=== PATIENT | male | born 1965 | race Two or more races ===

== ENCOUNTER → 2024-03-16 | Outpatient (CLI) | payer MEDICARE, SELFPAY ==
[2024-03-16 09:17] LABS: Anion Gap 4 (7-16); BUN/Creatinine Ratio 22 Ratio (12-20); Blood Urea Nitrogen 29 mg/dL (9-23); Calcium 10.4 mg/dL (8.3-10.6); Carbon Dioxide 30.7 mMol/L (20.0-31.0); Chloride 101 mMol/L (98-107); Creatinine (Component) 1.3 mg/dL (0.6-1.3); Glucose 168 mg/dL (74-106); Osmolality,Calculated 281 (275-295); Potassium 4.5 mMol/L (3.4-5.1); Sodium 136 mMol/L (136-145); eGFR > 60 See Note
== END | disposition home or self-care (01) ==
LOC: COPL 07:46
PROVIDERS: PCP Family Medicine; Referring Provider Nurse Practitioner; Visit Provider Nurse Practitioner
DX: I50.22 Chronic systolic (congestive) heart failure (principal); I48.91 Unspecified atrial fibrillation; I50.82 Biventricular heart failure; Z95.810 Presence of automatic (implantable) cardiac defibrillator
CPT/HCPCS: 36415; 80048

== ENCOUNTER 2024-03-21 09:02 | Emergency (ER) | payer MEDICARE, SELFPAY ==
[2024-03-21 09:04] VITALS: BP 102/61; PULSE 88; RESP 17; TEMP 36.9; O2SAT 98; BMI 25.8
--- NOTE | 2024-03-21 09:19 | XR_ITS ---
Examination: CT brain head without contrast. 2-D sagittal coronal reconstructions Date and time of exam:March 21, 2024 0926 hours INDICATIONS: Headaches beginning 3 days ago, onset focal neurologic deficit left-sided facial droop today CTDI: vol (mGy):56.6 DLP: (mGycm):1208 Technique: Multiple CT axial sections of the brain have been obtained, 5 mm slice thickness. Contrast has not been administered. 2-D sagittal, coronal reconstructions have been obtained Low dose protocols were performed. One or more of the following dose reduction techniques were used; automated exposure control, adjustment of the mA and/or KV according to patient size, use of iterative reconstruction technique. Findings: No significant ventricular enlargement. Small old infarct left basal ganglia Intra-axial or extra-axial hemorrhage density is not seen. No mass effect or midline shift Basal cisterns are not remarkable. Fourth ventricle is midline. Cranial vault intact. Impression: Negative for acute hemorrhage, mass effect or midline shift Advise clinical correlation and short-term follow-up as clinically warranted If the patient's cardiac leads are MRI compatible, recommend brain MRI follow-up
--- NOTE | 2024-03-21 09:49 | EDNOTE_ITS ---
Neuro Symptoms Deficit-RME/HPI General Chief Complaint: Neuro Symptoms/Deficit Stated Complaint: left facial paralysis i think i have bells palsy Time Seen by Provider: 03/21/24 09:04 Arrival date/time: 03/21/24 09:02 58-year-old male with history of A-fib, pacemaker hypertension hypothyroid presents emergency department complains of left-sided facial paralysis ongoing since Thursday patient reports no fever nausea vomiting. Patient reports no extremity weakness no numbness or tingling Limitations: no limitations Related Data Home Medications ?Medication ?Instructions ?Recorded ?Confirmed atorvastatin 20 mg tablet (Lipitor) 20 mg PO HS 11/16/18 05/28/22 carvedilol 3.125 mg tablet (Coreg) 3.125 mg PO BID 11/16/18 05/28/22 spironolactone 25 mg tablet 25 mg PO QDAY 01/31/19 05/28/22 dapagliflozin propanediol 10 mg 10 mg PO QDAY 12/18/21 05/28/22 tablet (Farxiga) lisinopril 5 mg tablet 5 mg PO QDAY 12/18/21 05/28/22 levothyroxine 25 mcg tablet 25 mcg PO QDAY 05/28/22 05/28/22 vericiguat 5 mg tablet (Verquvo) 5 mg PO QDAY 05/28/22 05/28/22 Previous Rx's ?Medication ?Instructions ?Recorded amiodarone 200 mg tablet 200 mg PO BID #60 tabs 05/31/22 apixaban 2.5 mg tablet (Eliquis) 5 mg (2 x 2.5 mg) PO BID #60 tabs 05/31/22 furosemide 40 mg tablet 40 mg PO DAILY #30 tabs 05/31/22 artificial tears(hypromellose) 0.3 1 drp ophthalmic (eye) BID PRN dry 03/21/24 % eye drops eyes #15 mL prednisone 10 mg tablet 30 mg (3 x 10 mg) PO BID 3 days 03/21/24 #18 tabs valacyclovir 1 gram tablet 1,000 mg PO TID 7 days #21 tabs 03/21/24 Allergies Allergy/AdvReac Type Severity Reaction Status Date / Time No Known Allergies Allergy Verified 03/21/24 09:03 Review of Systems Review of Systems Systems Reviewed: All systems reviewed, normal except as documented Constitutional Constitutional: Reports system reviewed and no additional complaints, except as documented, Denies fever(s) and Denies headache(s) Eyes Eyes: Reports system reviewed and no additional complaints, except as documented and Denies blurry vision ENT Ears, Nose, Mouth, and Throat: Reports system reviewed and no additional complaints, except as documented, Denies headache(s), Denies nasal congestion and Denies nasal discharge Cardiovascular Cardiovascular: Reports system reviewed and no additional complaints, except as documented, Denies chest pain and Denies dyspnea Respiratory Respiratory: Reports system reviewed and no additional complaints, except as documented, Denies chest congestion, Denies cough and Denies dyspnea Gastrointestinal Gastrointestinal: Reports system reviewed and no additional complaints, except as documented and Denies abdominal pain Integumentary/Breasts Skin/Breast: Reports system reviewed and no additional complaints, except as documented and Denies rash Neurologic Neurologic: Reports system reviewed and no additional complaints, except as documented, Reports as per HPI, Denies headache(s) and Reports other (Left-sided facial palsy) Past Medical History Past Medical History NEUROLOGIC: Negative Neurological Disorders, Cerebrovascular Accident, Transient Ischemic Attacks (TIA), Dementia, Alzheimer's Disease, Parkinson's Disease, Brain Tumor, Meningitis, Seizures, Epilepsy, Multiple Sclerosis, Cerebral Palsy, Amyotrophic Lateral Sclerosis (ALS/Yareli Gehrig's), Guillain-Plainfield Syndrome, Spina Bifida, Paralysis, Peripheral Neuropathy, Mcintyre's Palsy, Subdural Hematoma, Migraine, Head Trauma, Spinal Cord Injury or Traumatic Brain Injury CARDIAC: Positive Cardiac Disorders, Atrial Fibrillation, Atherosclerotic Heart Disease, Hypercholesterolemia, Congestive Heart Failure, Edema and Hypertension; Negative Myocardial Infarction, Cardiac Arrhythmia, Angina, Heart Murmur, Coronary Artery Disease, Peripheral Vascular Disease, Aneurysm, Congenital Heart Disease, Valvular Heart Disease, Rheumatic Fever, Cardiomyopathy, Pericarditis, Cellulitis, Deep Vein Thrombosis, Hypotension or Varicose Veins RESPIRATORY: Positive Sleep Apnea; Negative Chronic Obstructive Pulmonary Disease (COPD), Asthma, Bronchitis, Emphysema, Pneumonia, Pulmonary Fibrosis, Cystic Fibrosis, Tuberculosis, Pulmonary Embolism or Pulmonary Edema GASTROINTESTINAL: Positive Gastrointestinal Bleed and Obesity; Negative Gastrointestinal Disorders, Hepatitis, Cirrhosis, Pancreatitis, Celiac Disease, Gall Bladder Disease, Esophageal Varices, Darling's Esophagus, Colitis, Ulcerative Colitis, Diverticulitis, Diverticulosis, Ulcer, Colorectal Cancer, Irritable Bowel, Crohn's Disease, Obstructive Bowel, Hiatal Hernia, Hemorrhoids or Gastroesophageal Reflux Disease GENITOURINARY: Positive Genitourinary Disorders; Negative Renal Disease, Kidney Stones, Polycystic Kidney Disease, Neurogenic Bladder, Inguinal Hernia, Dialysis, Prostate Cancer or Benign Prostatic Hyperplasia REPRODUCTIVE: Negative Breast Cancer, Fibroids or Testicular Cancer MUSCULOSKELETAL: Positive Musculoskeletal Disorders and Arthritis (hands); Negative Muscular Dystrophy, Myasthenia Gravis, Marfan's Syndrome, Bone Cancer, Rheumatoid Arthritis, Osteoporosis, Degenerative Disk Disease, Gout, Scoliosis, Carpal Tunnel Syndrome, Fibromyalgia, Fractures, Degenerative Joint Disease, Osteomyelitis or Poliovirus ENT: Positive Ear Infection; Negative Cataracts, Glaucoma, Blind, Retinal Detachment, Macular Degeneration, Deafness, Head Trauma or Eye Prosthesis ENDOCRINE: Positive Endocrine Disorders, Diabetes Mellitus Type 2 and Hypothyro idism; Negative Diabetes Mellitus Type 1, Hypoglycemia, Jaswinder's Syndrome, Follansbee's Disease, Hyperthyroidism, Parathyroid Disease, Pituitary Disease, Systemic Lupus Erythematosus, Syndrome of Inappropriate Antidiuretic Hormone (SIADH), Adrenal Disease or Graves' Disease HEMATOLOGIC: Negative Blood Disorders, Anemia, Leukemia, Hemophilia, Thalassemia, Sickle Cell Disease or Clotting Problems PSYCHO/SOCIAL: Negative Psychiatric Problems, Schizophrenia, Recreational Drug Use, Bipolar Disorder, Depression, Anxiety, Behavior Problems, Self-Mutilation, Attention Deficit Disorder, Attention Deficit Hyperactivity Disorder, Depression, Post Traumatic Stress Disorder or Eating Disorder OTHER HISTORY: Positive Autoimmune Disease, Shingles and Chicken Pox; Negative Hospitalization, Down Syndrome, Autism, Developmental Delay, Falls, Blood Transfusions, Blood Transfusion Reaction, Anesthesia Reactions, Organ Transplant, Chemotherapy, Radiation Therapy, Hyperbaric Therapy, MRSA, VRSA, Human Immunodeficiency Virus (HIV), Measles, Mumps, Rubella (Welsh Measles), Pertussis, Clostridium Difficile (SHINGLES), Cancer, Breast Cancer, Cervical Cancer, Colorectal Cancer, Lung Cancer, Ovarian Cancer, Prostate Cancer or Testicular Cancer Family History FAMILY HISTORY: Positive Family Cancer; Negative Family Psychiatric Problems, Family Respiratory Disorders, Family Cardiac Disorders, Family Gastrointestinal Problems, Family Surgery or Family Anesthesia Reaction Surgical History SURGICAL: Positive Angiogram (x2) and Auto Implanted Cardiovert Defib; Negative Cardiac Surgery, Open Heart Surgery, Coronary Artery Bypass Graft, Valve Replacement, Vascular Surgery, Coronary Stent, Cardiac Catheterization, Pacemaker, Carotid Endarterectomy, Endocrine Surgery, Thyroidectomy, Ear Surgery, Tympanostomy Tube, Eye Surgery, Nose Surgery, Oral Surgery, Tonsillectomy, Adenoidectomy, Cochlear Implant, Corneal Transplant, Throat Surgery, Abdominal Surgery, Tracheostomy, Gastric Bypass Surgery, Gastrostomy, Bowel Surgery, Nephrectomy, Transurethral Resection, Joint Replacement, Amputation, Open Reduction Internal Fixation, Arthroscopy, Neurologic Surgery, Brain Shunt, Vasectomy or Organ Transplant Social History SMOKING STATUS: Never smoker SECOND HAND EXPOSURE: Yes ( smoker for 16 years) ED Exam General Limitations: Present no limitations General appearance: Present alert and in no apparent distress Head Head exam: Present atraumatic, normocephalic and normal inspection Eye Eye exam: Present normal appearance, PERRL and EOMI ENT ENT exam: Present normal exam, normal oropharynx and mucous membranes moist Neck Neck exam: Present normal inspection, full ROM and trachea midline Chest Chest inspection: Present normal inspection and symmetric chest wall rise Respiratory Respiratory exam: Present normal lung sounds bilaterally Cardiovascular Cardiovascular exam: Present regular rate, normal rhythm and normal heart sounds Abdominal Exam Abdominal exam: Present soft and normal bowel sounds Extremities Exam Extremities exam: Present normal inspection and full ROM Back Exam Back exam: Present normal inspection and full ROM Neurological Exam Neurological exam: Present alert, oriented X3, normal gait, reflexes normal and other (Left-sided facial palsy cannot lift left eyebrow having a hard time closing his left eye); Absent motor sensory deficit Psychiatric Psychiatric exam: Present normal affect and normal mood Skin Skin exam: Present warm, dry, intact and normal color Course Quality Measures none Orders Category Date Time Status CT head/brain wo con Stat Exams 03/21/24 09:19 Completed Vital Signs Vital signs: Vital Signs Temperature 98.5 F 03/21/24 09:04 Pulse Rate 88 03/21/24 09:04 Respiratory Rate 17 03/21/24 09:04 Blood Pressure 102/61 03/21/24 09:04 Pulse Oximetry (%) 98 03/21/24 09:04 Oxygen Delivery Method Room Air 03/21/24 09:04 O2 saturation 98% room air within normal limits Neuro Symptoms / Deficit MDM Narrative MDM Narrative:: 58-year-old male with history of A-fib, pacemaker hypertension hypothyroid presents emergency department complains of left-sided facial paralysis ongoing since Thursday patient reports no fever nausea vomiting. 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 CT scan obtained to rule out any acute emergent findings CT of the head is within normal limits at this time no acute emergent findings patient walks with steady gait reports no extremity weakness Patient be discharged with valacyclovir, prednisone and artificial tears Patient discharged home in no distress to follow-up with primary care doctor in the next 24 to 48 hours and for any worsening symptoms to return to the ER immediately Patient data External records reviewed:: [facility] previous records Clinical information provided by:: patient Social determinants that could affect healthcare access:: none Patient has the following chronic illnesses:: See history How is presenting disease/condition affected by chronic disease/condition?: uneffected by Evaluation data The following diagnostics were reviewed and interpreted by me:: radiology exam(s) Lab and/or radiology exams considered but not ordered:: Radiology obtained Interpretation Summary: Reviewed by me Medications / Prescriptions Medications or Prescriptions considered but not ordered:: Given Medication administrations:: Given Consultations Consultation(s) initiated? (list below): No Diagnosis Neuro Differential Diagnosis: other (Closed head injury,) Most likely diagnosis given after review of the tests above:: Mcintyre's palsy Admission Indicated Admission indicated?: not indicated Admission Request Was there a request for admission?: No Disposition Plan Disposition Plan: Discharge Discharge Attestation Discharge Attestation: The patient and all family members were given an opportunity to ask questions and understood the discharge instructions. Discharge instructions specifically effects, indications for sooner follow up or return to the emergency department, and the expected course of current diagnosis. Patient condition: Stable Discharge Plan Plan Patient Disposition: HOME (Self Care) Disposition Comment: Stable Prescriptions/Referrals Prescriptions/Med Rec: New prednisone 10 mg tablet 30 mg PO BID 3 Days Qty: 18 0RF valacyclovir 1 gram tablet 1,000 mg PO TID 7 Days Qty: 21 0RF artificial tears(hypromellose) 0.3 % drops 1 drp ophthalmic (eye) BID PRN (Reason: dry eyes) Qty: 15 0RF No Action atorvastatin [Lipitor] 20 mg Tablet 20 mg PO HS carvedilol [Coreg] 3.125 mg Tablet 3.125 mg PO BID spironolactone 25 mg Tablet 25 mg PO QDAY lisinopril 5 mg tablet 5 mg PO QDAY Patient Comments: TAKE 1 TABLET BY MOUTH EVERY DAY Farxiga 10 mg tablet 10 mg PO QDAY Patient Comments: take one tablet by mouth once a day levothyroxine 25 mcg Tablet 25 mcg PO QDAY Verquvo 5 mg Tablet 5 mg PO QDAY Rx Instructions: must administer with a meal/food amiodarone 200 mg Tablet 200 mg PO BID Qty: 60 0RF Eliquis 2.5 mg Tablet 5 mg PO BID Qty: 60 0RF furosemide 40 mg Tablet 40 mg PO DAILY Qty: 30 0RF Referrals: Thomas Garcia MD [Primary Care Provider] - In 1 week Problem List Clinical Impression: Mcintyre's palsy Patient/Caregiver Discharge Instructions Education Materials: Mcintyre's Palsy Additional Instructions: Please follow up with your primary care doctor in the next 24-48hrs for any wo rsening symptoms return here immediately Print Language: Setswana Stand Alone Forms: Sally Award Info., Patient Portal Info Letter MD Attestation Attestation The patient was seen by the midlevel practitioner. I, the co-signing physician, was present during the entire ER visit. While I did not physically examine the p atient, I was available for consultation as needed.
== END 2024-03-21 09:59 | disposition home or self-care (01) ==
PROVIDERS: Emergency Provider Emergency Medicine; PCP Family Medicine
DX: G51.0 Bell's palsy (principal)
CPT/HCPCS: 70450; 99284

== ENCOUNTER 2024-05-25 09:14 | Emergency (ER) | payer MEDICARE, SELFPAY ==
--- NOTE | 2024-05-25 09:36 | XR_ITS ---
Examination: CT abdomen and pelvis without contrast. Coronal 3-D reconstructions. Sagittal 2-D reconstructions. Date and time of exam:May 25, 2024 1008 hours INDICATIONS: Bilateral flank pain lower pelvic pain beginning 5 days ago CTDI: vol (mGy): 11.4 DLP: (mGycm): 731 Technique: Axial images of the abdomen have been obtained, 3 mm slice thickness Intravenous contrast material has not been administered. Low dose protocols were performed. One or more of the following dose reduction techniques were used; automated exposure control, adjustment of the mA and/or KV according to patient size, use of iterative reconstruction technique. Findings: Mild enlargement cardiac contour No focal liver or splenic lesions Contracted gallbladder No pancreatic or adrenal mass Mild to moderate bilateral renal parenchymal scar formation No renal or ureteral calculi, no hydronephrosis Aorta normal size Normal appendix Markedly abnormal sigmoid colon, axial image 187, marked wall thickening over a distance of 5 cm with diverticula No peridiverticular abscess No bladder mass Transverse prostate dimension 4.9 cm IMPRESSION: Mild to moderate bilateral renal parenchymal scar formation No renal or ureteral calculi, no hydronephrosis Markedly abnormal sigmoid colon marked wall thickening over a distance of 5 cm with diverticula, differential would include acute diverticulitis, underlying malignant neoplasm of the colon not excluded Posttreatment recommend colonoscopy follow-up
--- NOTE | 2024-05-25 09:37 | PD.EDRME ---
Rapid Medical Screening Exam RME Arrival date/time: 05/25/24 09:14 58-year-old male presents to the emergency department complaints of pain with bowel movements and pain with urination Chief Complaint: Urogenital-Male Time Seen by Provider: 05/25/24 09:31
[2024-05-25 09:41] VITALS: BP 105/70; PULSE 72; RESP 18; TEMP 36.7; O2SAT 96; BMI 40.2
[2024-05-25 10:23] LABS: Basophils % (Auto) 0 % (0-2.5); Eosinophils # (Auto) 0.2 Thou/mm3 (0.0-0.5); Eosinophils % (Auto) 2 % (0-10); Hematocrit 43.2 % (41.0-53.0); Hemoglobin 14.6 g/dL (13.5-16.0); Immature Granulocytes % (Auto) 1 % (0-0); Immature Granulocytes Auto 0.07 Thou/mm3 (0.00-0.00); Lymphocytes # (Auto) 1.9 Thou/mm3 (1.0-4.8); Lymphocytes % (Auto) 15 % (10-50); Mean Corpuscular HGB Conc 33.8 g/dl (31.0-37.0); Mean Corpuscular Hemoglobin 31.7 pg (25.0-35.0); Mean Corpuscular Volume 94 fL (80-100); Monocytes # (Auto) 0.7 Thou/mm3 (0.0-0.8); Monocytes % (Auto) 6 % (0-12); Neutrophils # (Auto) 9.9 Thou/mm3 (1.8-7.7); Neutrophils % (Auto) 77 % (37-80); Nucleated Red Blood Cell % 0 /100 WBC (0); Platelet Count 249 Thou/mm3 (140-440); RDW Standard Deviation 42.7 fL (35.1-43.9); White Blood Count 12.8 Thou/mm3 (3.8-10.6)
[2024-05-25 10:31] LABS: Collection Type, Urine Clean Catch; Squamous Epithelial Cell,Urine 0 /hpf (0-5); WBC,Urine 0 /hpf (0-5)
[2024-05-25 10:50] LABS: Bilirubin,Urine Negative (Negative); Blood,Urine Negative (Negative); Clarity,Urine Clear (Clear/Hazy); Color,Urine Colorless (Lt Yel-Yel); Culture Indicated,Urine Not Indicated; Glucose, Urine 4+ (Negative); Ketones,Urine Negative (Negative); Leukocyte Esterase,Urine Negative (Negative); Nitrite,Urine Negative (Negative); Protein,Urine Negative (Neg - Trace); RBC,Urine 4 /hpf (0-3); Specific Gravity,Urine 1.016 (1.001-1.035); Urobilinogen,Urine Negative mg/dL (0.0-1.0)
[2024-05-25 10:57] LABS: Alanine Aminotransferase 11 U/L (10-49); Albumin, Serum 4.7 gm/dL (3.4-4.8); Albumin/Globulin Ratio 1.4 (1.2-2.2); Alkaline Phosphatase 94 U/L (46-116); Anion Gap 9 (7-16); Aspartate Amino Transferase 14 U/L (0-34); BUN/Creatinine Ratio 16 Ratio (12-20); Bilirubin,Total 0.9 mg/dL (0.3-1.2); Blood Urea Nitrogen 18 mg/dL (9-23); Calcium 9.7 mg/dL (8.3-10.6); Calcium (Corrected) 9.7 mg/dL (8.5-10.1); Carbon Dioxide 27.8 mMol/L (20.0-31.0); Chloride 97 mMol/L (98-107); Creatinine (Component) 1.1 mg/dL (0.6-1.3); Estimated Creatinine Clearance 73.4 mL/min (>60); Globulin 3.4 gm/dL (2.3-3.5); Glucose 198 mg/dL (74-106); Lipase 41 U/L (12-53); Osmolality,Calculated 276 (275-295); Potassium 3.7 mMol/L (3.4-5.1); Sodium 134 mMol/L (136-145); Total Protein 8.1 gm/dL (5.7-8.2); eGFR > 60 See Note
--- NOTE | 2024-05-25 12:20 | EDNOTE_ITS ---
ED General RME/HPI General Chief complaint: Urogenital-Male Stated complaint: painful urination and defecation x 5 days Time Seen by Provider: 05/25/24 09:31 Arrival date/time: 05/25/24 09:14 RME / HPI RME / HPI narrative: 58-year-old male patient with significant history of cardiac issues, with defibrillator, came in for evaluation regarding painful bowel movement with urination, has been ongoing for the last 5 days. Patient denies any vomiting denies any blood in the stool denies any weight loss denies any fever denies any other complaints no medications taken prior to arrival. Denies any history of malignancy in the past. Denies any any history of colon cancer in the family. Related Data Home Medications ?Medication ?Instructions ?Recorded ?Confirmed atorvastatin 20 mg tablet (Lipitor) 20 mg PO HS 11/16/18 05/28/22 carvedilol 3.125 mg tablet (Coreg) 3.125 mg PO BID 11/16/18 05/28/22 spironolactone 25 mg tablet 25 mg PO QDAY 01/31/19 05/28/22 dapagliflozin propanediol 10 mg 10 mg PO QDAY 12/18/21 05/28/22 tablet (Farxiga) lisinopril 5 mg tablet 5 mg PO QDAY 12/18/21 05/28/22 levothyroxine 25 mcg tablet 25 mcg PO QDAY 05/28/22 05/28/22 vericiguat 5 mg tablet (Verquvo) 5 mg PO QDAY 05/28/22 05/28/22 Previous Rx's ?Medication ?Instructions ?Recorded amiodarone 200 mg tablet 200 mg PO BID #60 tabs 05/31/22 apixaban 2.5 mg tablet (Eliquis) 5 mg (2 x 2.5 mg) PO BID #60 tabs 05/31/22 furosemide 40 mg tablet 40 mg PO DAILY #30 tabs 05/31/22 artificial tears(hypromellose) 0.3 1 drp ophthalmic (eye) BID PRN dry 03/21/24 % eye drops eyes #15 mL ciprofloxacin HCl 500 mg tablet 500 mg PO BID #20 tabs 05/25/24 (Cipro) metronidazole 500 mg tablet 500 mg PO BID 10 days #20 tabs 05/25/24 Allergies Allergy/AdvReac Type Severity Reaction Status Date / Time No Known Allergies Allergy Verified 05/25/24 09:16 Review of Systems Review of Systems Narrative Review of Systems: Review of system reviewed and within normal limits except mentioned in HPI ED Exam Narrative Physical exam: VITAL SIGNS: Reviewed. GENERAL APPEARANCE: Alert and interactive, follows commands, no acute distress, HEAD AND FACE: Non-traumatic. ENT: PERRL, pink conjunctivitis, eyelid no trauma, Mucous membrane moist. NECK: Supple, nontender, no nuchal rigidity. CHEST: No tenderness, no crepitus, no paradoxical movement, no retractions. LUNGS: Clear, well ventilated, symmetric, no rales, no wheezing, no ronchi, no stridor, good breath sounds bilaterally. HEART: Regular rate, regular rhythm, no murmur, no gallops. ABDOMEN: Soft, positive bowel sounds, nondistended, no guarding, nontender, no rebound, no masses, RECTAL: Deferred. GENITAL: Deferred. NEUROLOGICAL: Gross motor function intact sensory function intact, Appropriate for age. MUSCULOSKELETAL: low back nontender, full range of motion. EXTREMITIES: Nontender, full range of motion. SKIN: Color pink, dry, no rash, no lacerations, no abrasions, no contusions. LYMPHATICS: Deferred. Course Quality Measures none Orders Category Date Time Status CT abdomen pelvis wo con Stat Exams 05/25/24 09:36 Completed CBC Stat Lab 05/25/24 09:50 Completed Comprehensive Metabolic Panel Stat Lab 05/25/24 09:50 Completed Lipase Stat Lab 05/25/24 09:50 Completed UA, C/S IF [Urinalysis, C/S if Indicated] Stat Lab 05/25/24 10:18 Completed Vital Signs Vital signs: Vital Signs Temperature 98.0 F 05/25/24 09:41 Pulse Rate 72 05/25/24 09:41 Respiratory Rate 18 05/25/24 09:41 Blood Pressure 105/70 05/25/24 09:41 Pulse Oximetry (%) 96 05/25/24 09:41 Oxygen Delivery Method Room Air 05/25/24 09:41 [facility] Patient data External records reviewed:: None Clinical information provided by:: patient Social determinants that could affect healthcare access:: none Patient has the following chronic illnesses:: A-fib with RVR, congestive heart failure How is presenting disease/condition affected by chronic disease/condition?: u neffected by Evaluation data The following diagnostics were reviewed and interpreted by me:: lab results and radiology exam(s) Lab and/or radiology exams considered but not ordered:: None Interpretation Summary: Laboratory workup significant for slight leukocytosis, CT scan of the abdomen pelvis showed Mild to moderate bilateral renal parenchymal scar formation No renal or ureteral calculi, no hydronephrosis Markedly abnormal sigmoid colon marked wall thickening over a distance of 5 cm with diverticula, differential would include acute diverticulitis, underlying malignant neoplasm of the colon not excluded Posttreatment recommend colonoscopy follow-up Medications Medications considered but not ordered:: None Medication administrations:: None Consultations Consultation(s) initiated? (list below): No Diagnosis Differential Diagnosis ED Complaint MDM: Abdominal pain, diverticulitis, suspicion for colon malignancy Most likely diagnosis given after review of the tests above:: Diverticulitis Admission Indicated Admission indicated?: not indicated Explain why admission is indicated or not indicated:: Stable Admission Request Was there a request for admission?: No Disposition Plan Disposition Plan: Discharge Discharge Attestation Discharge Attestation: The patient and all family members were given an opportunity to ask questions and understood the discharge instructions. Discharge instructions specifically effects, indications for sooner follow up or return to the emergency department, and the expected course of current diagnosis. Patient condition: Stable Medical Decision Making MDM Narrative MDM Narrative: 58-year-old male patient with significant history of cardiac issues, with defibrillator, came in for evaluation regarding painful bowel movement with urination, has been ongoing for the last 5 days. Patient denies any vomiting denies any blood in the stool denies any weight loss denies any fever denies any other complaints no medications taken prior to arrival. Denies any history of malignancy in the past. Denies any any history of colon cancer in the family. Laboratory all came back unremarkable. Except for slight leukocytosis 12.8. CT scan of the abdomen and pelvis showed Mild to moderate bilateral renal parenchymal scar formation No renal or ureteral calculi, no hydronephrosis Markedly abnormal sigmoid colon marked wall thickening over a distance of 5 cm with diverticula, differential would include acute diverticulitis, underlying malignant neoplasm of the colon not excluded Posttreatment recommend colonoscopy follow-up Patient was extensively advised to follow-up closely with PCP and for referral to GI specialist for outpatient colonoscopy post treatment. Patient agrees with the plan. Differential Diagnosis Differential Diagnosis: Abdominal pain, diverticulitis, suspicion for colon malignancy Lab Data 01/22/25 09:50 05/25/24 09:50 Labs: Lab Results 05/25/24 05/25/24 Range/Units 09:50 10:18 WBC 12.8 H (3.8-10.6) Thou/mm3 RBC 4.60 (4.50-5.90) Miln/mm3 Hgb 14.6 (13.5-16.0) g/dL Hct 43.2 (41.0-53.0) % MCV 94 (80-100) fL MCH 31.7 (25.0-35.0) pg MCHC 33.8 (31.0-37.0) g/dl RDW Std Deviation 42.7 (35.1-43.9) fL Plt Count 249 (140-440) Thou/mm3 Neut % (Auto) 77 (37-80) % Lymph % (Auto) 15 (10-50) % Williams % (Auto) 6 (0-12) % Eos % (Auto) 2 (0-10) % Baso % (Auto) 0 (0-2.5) % Neut # (Auto) 9.9 H (1.8-7.7) Thou/mm3 Lymph # (Auto) 1.9 (1.0-4.8) Thou/mm3 Williams # (Auto) 0.7 (0.0-0.8) Thou/mm3 Eos # (Auto) 0.2 (0.0-0.5) Thou/mm3 Baso # (Auto) 0.0 (0.0-0.2) Thou/mm3 Immature Gran # (Auto) 0.07 H (0.00-0.00) Thou/mm3 Absolute Nucleated RBC 0.00 (0.00-0.00) Thou/mm3 Immature Gran % 1 H (0-0) % Nucleated RBC % 0 (0) /100 WBC Sodium 134 L (136-145) mMol/L Potassium 3.7 (3.4-5.1) mMol/L Chloride 97 L (98-107) mMol/L Carbon Dioxide 27.8 (20.0-31.0) mMol/L Anion Gap 9 (7-16) BUN 18 (9-23) mg/dL Creatinine 1.1 (0.6-1.3) mg/dL Estim Creat Clear Calc 73.4 (>60) mL/min eGFR > 60 (60 - ) See Note BUN/Creatinine Ratio 16 (12-20) Ratio Glucose 198 H (74-106) mg/dL Calculated Osmolality 276 (275-295) Calcium 9.7 (8.3-10.6) mg/dL Corrected Calcium 9.7 (8.5-10.1) mg/dL Total Bilirubin 0.9 (0.3-1.2) mg/dL AST 14 (0-34) U/L ALT 11 (10-49) U/L Alkaline Phosphatase 94 (46-116) U/L Total Protein 8.1 (5.7-8.2) gm/dL Albumin 4.7 (3.4-4.8) gm/dL Globulin 3.4 (2.3-3.5) gm/dL Albumin/Globulin Ratio 1.4 (1.2-2.2) Lipase 41 (12-53) U/L Ur Collection Type Clean Catch Urine Color Colorless A (Lt Yel-Yel) Urine Clarity Clear (Clear/Hazy) Urine pH 6.0 (5.0-7.0) Ur Specific [place] 1.016 (1.001-1.035) Urine Protein Negative (Neg - Trace) Urine Glucose (UA) 4+ A (Negative) Urine Ketones Negative (Negative) Urine Blood Negative (Negative) Urine Nitrite Negative (Negative) Urine Bilirubin Negative (Negative) Urine Urobilinogen (Auto) Negative (0.0-1.0) mg/dL Ur Leukocyte Esterase Negative (Negative) Urine RBC 4 H (0-3) /hpf Urine WBC 0 (0-5) /hpf Ur Squamous Epith Cells 0 (0-5) /hpf Urine Bacteria None (None) Ur Culture Indicated? Not Indicated Discharge Plan Plan Patient Disposition: HOME (Self Care) Disposition Comment: stable Prescriptions/Referrals Prescriptions/Med Rec: New ciprofloxacin HCl [Cipro] 500 mg tablet 500 mg PO BID Qty: 20 0RF metronidazole 500 mg tablet 500 mg PO BID 10 Days Qty: 20 0RF No Action atorvastatin [Lipitor] 20 mg Tablet 20 mg PO HS carvedilol [Coreg] 3.125 mg Tablet 3.125 mg PO BID spironolactone 25 mg Tablet 25 mg PO QDAY lisinopril 5 mg tablet 5 mg PO QDAY Patient Comments: TAKE 1 TABLET BY MOUTH EVERY DAY Farxiga 10 mg tablet 10 mg PO QDAY Patient Comments: take one tablet by mouth once a day levothyroxine 25 mcg Tablet 25 mcg PO QDAY Verquvo 5 mg Tablet 5 mg PO QDAY Rx Instructions: must administer with a meal/food amiodarone 200 mg Tablet 200 mg PO BID Qty: 60 0RF Eliquis 2.5 mg Tablet 5 mg PO BID Qty: 60 0RF furosemide 40 mg Tablet 40 mg PO DAILY Qty: 30 0RF artificial tears(hypromellose) 0.3 % drops 1 drp ophthalmic (eye) BID PRN (Reason: dry eyes) Qty: 15 0RF Referrals: Cody Rockwell PA-C [Primary Care Provider] - In 1 week Problem List Clinical Impression: Diverticulitis large intestine Patient/Caregiver Discharge Instructions Discharge Activity: activity as tolerated Education Materials: ED Diverticulitis Additional Instructions: Thank you for the opportunity for serving you today. You are stable for discharged . You are advised to: Follow-up with your PCP in 1 to 2 days and asked for referral to GI specialist MD, for posttreatment colonoscopy to rule out malignancy of your colon Return to ED for worsening of symptoms Increase oral fluids Take medication as prescribed Print Language: Faroese Stand Alone Forms: Sally Award Info., Patient Portal Info Letter JAMEY/HUNG Supervising Physician MICHELE Supervising Physician: Dr Vega
[2024-05-25 12:29] VITALS: BP 108/72; PULSE 69; RESP 19; TEMP 36.5; O2SAT 96
== END 2024-05-25 12:33 | disposition home or self-care (01) ==
PROVIDERS: Nurse Practitioner Primary Care; Emergency Provider Emergency Medicine; PCP Family Medicine
DX: K57.32 Diverticulitis of large intestine without perforation or abscess without bleeding (principal)
CPT/HCPCS: 36415; 74176; 80053; 81001; 83690; 85025; 99284

== ENCOUNTER 2024-07-16 07:41 | Emergency (ER) | payer MEDICARE, SELFPAY ==
[2024-07-16 07:49] VITALS: BP 114/62; PULSE 73; RESP 18; TEMP 36.5; O2SAT 96; BMI 32.1
[2024-07-16] MEDS: OXYMETAZOLINE NAS SPRY 0.05% 15 ML BTL NASAL (08:26)
--- NOTE | 2024-07-16 08:46 | PD.EDEPIST ---
ED Epistaxis RME/HPI General Chief complaint: Epistaxis/Nasal Foreign Body Stated complaint: NOSE BLEED, ON THINNERS Time Seen by Provider: 07/16/24 07:53 Arrival date/time: 07/16/24 07:41 This is a 58-year-old male that comes in with complaints of nosebleed that started early this morning. Patient states he was having a bowel movement and he started having a nosebleed. Patient reports that he is on blood thinners currently. Patient reports that he is on Pradaxa. Patient denies any atrial fibrillation but does have a pacemaker and defibrillator. Patient denies any chest pain shortness of breath or any other symptoms. By the time he got to the emergency room his nosebleed had resolved. Patient also has a history of high blood pressure hypothyroidism Related Data Home Medications ?Medication ?Instructions ?Recorded ?Confirmed atorvastatin 20 mg tablet (Lipitor) 20 mg PO HS 11/16/18 05/28/22 carvedilol 3.125 mg tablet (Coreg) 3.125 mg PO BID 11/16/18 05/28/22 spironolactone 25 mg tablet 25 mg PO QDAY 01/31/19 05/28/22 dapagliflozin propanediol 10 mg 10 mg PO QDAY 12/18/21 05/28/22 tablet (Farxiga) lisinopril 5 mg tablet 5 mg PO QDAY 12/18/21 05/28/22 levothyroxine 25 mcg tablet 25 mcg PO QDAY 05/28/22 05/28/22 vericiguat 5 mg tablet (Verquvo) 5 mg PO QDAY 05/28/22 05/28/22 Previous Rx's ?Medication ?Instructions ?Recorded amiodarone 200 mg tablet 200 mg PO BID #60 tabs 05/31/22 apixaban 2.5 mg tablet (Eliquis) 5 mg (2 x 2.5 mg) PO BID #60 tabs 05/31/22 furosemide 40 mg tablet 40 mg PO DAILY #30 tabs 05/31/22 artificial tears(hypromellose) 0.3 1 drp ophthalmic (eye) BID PRN dry 03/21/24 % eye drops eyes #15 mL ciprofloxacin HCl 500 mg tablet 500 mg PO BID #20 tabs 05/25/24 (Cipro) Allergies Allergy/AdvReac Type Severity Reaction Status Date / Time No Known Allergies Allergy Verified 07/16/24 07:43 Course Orders Category Date Time Status Oxymetazoline Lv [place] 0.05% [Afrin Nasal [place]] Med 07/16/24 08:20 Discontinued See Dose Instructions NASAL X1 ONE Vital Signs Vital signs: Vital Signs Temperature 97.7 F 07/16/24 07:49 Pulse Rate 73 07/16/24 07:49 Respiratory Rate 18 07/16/24 07:49 Blood Pressure 114/62 07/16/24 07:49 Pulse Oximetry (%) 96 07/16/24 07:49 Oxygen Delivery Method Room Air 07/16/24 07:49 Epistaxis MDM Narrative MDM Narrative:: A dose of Afrin given to bilateral nasal naris. Patient had no more bleeding. Patient feels better. Will discharge patient home. Patient is to follow-up with primary provider in 1 to 2 days. Come back to the emergency room if symptoms change or worsen. Medications / Prescriptions Medication administrations:: Medication Administration History Discontinued Medications Oxymetazoline HCl (Oxymetazoline Lv [place] 0.05% 15 Ml Btl) 0 spray NASAL X1 ONE Stop: 07/16/24 08:21 Last Admin: 07/16/24 08:26 Dose: 2 spray Documented By: NICHOLAS Discharge Plan Plan Patient Disposition: HOME (Self Care) Patient condition on transfer: Stable Prescriptions/Referrals Prescriptions/Med Rec: No Action atorvastatin [Lipitor] 20 mg Tablet 20 mg PO HS carvedilol [Coreg] 3.125 mg Tablet 3.125 mg PO BID spironolactone 25 mg Tablet 25 mg PO QDAY lisinopril 5 mg tablet 5 mg PO QDAY Patient Comments: TAKE 1 TABLET BY MOUTH EVERY DAY Farxiga 10 mg tablet 10 mg PO QDAY Patient Comments: take one tablet by mouth once a day levothyroxine 25 mcg Tablet 25 mcg PO QDAY Verquvo 5 mg Tablet 5 mg PO QDAY Rx Instructions: must administer with a meal/food amiodarone 200 mg Tablet 200 mg PO BID Qty: 60 0RF Eliquis 2.5 mg Tablet 5 mg PO BID Qty: 60 0RF furosemide 40 mg Tablet 40 mg PO DAILY Qty: 30 0RF artificial tears(hypromellose) 0.3 % drops 1 drp ophthalmic (eye) BID PRN (Reason: dry eyes) Qty: 15 0RF ciprofloxacin HCl [Cipro] 500 mg tablet 500 mg PO BID Qty: 20 0RF Referrals: Ton Rockwell PA-C [Primary Care Provider] - In 1 week Problem List Clinical Impression: Epistaxis Patient/Caregiver Discharge Instructions Discharge Activity: activity as tolerated Education Materials: ED Epistaxis (Adult) Additional Instructions: Follow up with primary provider in 1-2 days. Come back to ED if symptoms change or worsen Print Language: Greek Stand Alone Forms: Sally Award Info., Patient Portal Info Letter PA/ASPHALT ROLLER OPERATOR Supervising Physician PA/ASPHALT ROLLER OPERATOR Supervising Physician: lisbeth
== END 2024-07-16 09:45 | disposition home or self-care (01) ==
PROVIDERS: Emergency Provider Family Medicine
DX: R04.0 Epistaxis (principal); Z95.0 Presence of cardiac pacemaker; E03.9 Hypothyroidism, unspecified
CPT/HCPCS: 99282; A9270

== ENCOUNTER 2024-07-22 06:35 | Day surgery (SDC) | payer MEDICARE, SELFPAY ==
[2024-07-22] VITALS (10 sets, daily range): BP systolic 96–113; BP diastolic 62–76; PULSE 70–76; RESP 11–18; TEMP 36.6–36.7; O2SAT 92–99; BMI 32.0
[2024-07-22] MEDS: SODIUM CHLORIDE 0.9% 500 ML 500 ML 125 ML IV (07:26)
[2024-07-22] MEDS: MIDAZOLAM INJ 1 MG/ML VIAL 2 ML (ASD USE ONLY) 2 MG IV (07:27)
[2024-07-22] MEDS: fentaNYL CIT INJ 50 mCg/ML AMP 2ML (ASD USE ONLY) IV (07:28)
[2024-07-22] MEDS: DiphenhydrAMINE INJ 50 MG/ML VIAL 25 MG IV (07:29)
== END 2024-07-22 08:33 | disposition home or self-care (01) ==
PROVIDERS: Referring Provider Surgery; Visit Provider Surgery
PROC: 0DBE8ZX Excision of Large Intestine, Via Natural or Artificial Opening Endoscopic, Diagnostic (ICD-10-PCS; CPT 45380; principal; 2024-07-22 07:30)
DX: K64.0 First degree hemorrhoids (principal); K57.30 Diverticulosis of large intestine without perforation or abscess without bleeding
CPT/HCPCS: 45378; J1200; J2250; J3010; J7040

== ENCOUNTER → 2024-09-05 | Outpatient (CLI) | payer MEDICARE, SELFPAY ==
[2024-09-05 08:11] LABS: Misc Send Out* See Sep Rpt
[2024-09-05 09:28] LABS: Anion Gap 10 (7-16); BUN/Creatinine Ratio 23 Ratio (12-20); Blood Urea Nitrogen 25 mg/dL (9-23); Calcium 9.2 mg/dL (8.3-10.6); Carbon Dioxide 28.4 mMol/L (20.0-31.0); Cardiac Risk Estimate 4.7 RATIO (4.0-6.7); Chloride 100 mMol/L (98-107); Cholesterol 136 mg/dL (132-200); Creatinine (Component) 1.1 mg/dL (0.6-1.3); Glucose 163 mg/dL (74-106); HDL Cholesterol 29 mg/dL (40-60); LDL Cholesterol,Calculated 54 mg/dL (0-130); Osmolality,Calculated 284 (275-295); Potassium 4.4 mMol/L (3.4-5.1); Sodium 138 mMol/L (136-145); Triglycerides 266 mg/dL (30-150); eGFR > 60 See Note
[2024-09-09 06:40] LABS: Direct LDL* 69 mg/dL (<100)
== END | disposition home or self-care (01) ==
LOC: COPL 07:48
PROVIDERS: PCP Family Medicine; Referring Provider Nurse Practitioner; Visit Provider Nurse Practitioner
DX: I50.22 Chronic systolic (congestive) heart failure (principal); I48.91 Unspecified atrial fibrillation; Z95.810 Presence of automatic (implantable) cardiac defibrillator
CPT/HCPCS: 36415; 80048; 80061; 83721

== ENCOUNTER 2025-04-23 07:15 | Emergency (ER) | payer MEDICARE, SELFPAY ==
[2025-04-23 07:27] VITALS: BP 119/75; PULSE 76; RESP 18; TEMP 36.6; O2SAT 97; BMI 30.2
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
--- NOTE | 2025-04-23 07:33 | EKG_ITS ---
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
--- NOTE | 2025-04-23 07:34 | XR_ITS ---
EXAMINATION: AP chest single view TECHNIQUE: Portable AP chest single view Date and time: April 23, 2025, 0840 hours, comparison December 16, 2023 INDICATIONS: Shortness of breath today. FINDINGS: Mild CHF Mild to moderate enlargement cardiac contour Prominent vascular congestion Septal edema at the lung bases Transvenous dual-chamber bipolar cardiac leads satisfactory position Prominent osteopenia IMPRESSION: Mild CHF
--- NOTE | 2025-04-23 07:34 | XR_ITS ---
Examination: Abdomen sonogram, Limited Date and time of exam: April 23, 2025, 0744 hours INDICATIONS: Epigastric pain 3 days. Technique: Real-time aquino scale transabdominal sonographic images of the upper abdomen obtained. Findings: Minimal gallbladder sludge No gallstones Gallbladder wall 0.3 cm Common bile duct 0.4 cm Pancreatic head 3.1 cm Hepatomegaly 19.4 cm no liver lesions Normal hepatopetal portal venous flow Patent IVC IMPRESSION: Minimal gallbladder sludge Negative for cholelithiasis, negative for cholecystitis Normal common bile duct
[2025-04-23 08:43] LABS: Basophils # (Auto) 0.0 Thou/mm3 (0.0-0.2); Basophils % (Auto) 0 % (0-2.5); Eosinophils # (Auto) 0.2 Thou/mm3 (0.0-0.5); Eosinophils % (Auto) 2 % (0-10); Hematocrit 41.4 % (41.0-53.0); Hemoglobin 14.1 g/dL (13.5-16.0); Immature Granulocytes Auto 0.03 Thou/mm3 (0.00-0.00); Lymphocytes # (Auto) 1.8 Thou/mm3 (1.0-4.8); Lymphocytes % (Auto) 17 % (10-50); Mean Corpuscular HGB Conc 34.1 g/dl (31.0-37.0); Mean Corpuscular Hemoglobin 31.8 pg (25.0-35.0); Mean Corpuscular Volume 93 fL (80-100); Monocytes # (Auto) 0.5 Thou/mm3 (0.0-0.8); Monocytes % (Auto) 5 % (0-12); Neutrophils # (Auto) 7.9 Thou/mm3 (1.8-7.7); Neutrophils % (Auto) 75 % (37-80); Nucleated Red Blood Cell # 0.00 Thou/mm3 (0.00-0.00); Nucleated Red Blood Cell % 0 /100 WBC (0); Platelet Count 208 Thou/mm3 (140-440); RDW Standard Deviation 42.7 fL (35.1-43.9); Red Blood Count 4.44 Miln/mm3 (4.50-5.90); White Blood Count 10.5 Thou/mm3 (3.8-10.6)
--- NOTE | 2025-04-23 08:52 | PC.NURSE ---
Pt refused morphine, MD aware. Pt reports he feels good just a burning sensation in his throat and right side of his chest, states he does not want any medication at this time. Will cont w/poc
[2025-04-23 09:12] LABS: D-Dimer < 250 ng/mL (<600)
[2025-04-23 09:55] LABS: Alanine Aminotransferase 36 U/L (10-49); Albumin, Serum 3.9 gm/dL (3.4-4.8); Albumin/Globulin Ratio 1.2 (1.2-2.2); Alkaline Phosphatase 94 U/L (46-116); Anion Gap 9 (7-16); Aspartate Amino Transferase 26 U/L (0-34); BUN/Creatinine Ratio 20 Ratio (12-20); Bilirubin,Direct 0.4 mg/dL (0.0-0.3); Bilirubin,Total 1.1 mg/dL (0.3-1.2); Blood Urea Nitrogen 20 mg/dL (9-23); Calcium 9.2 mg/dL (8.3-10.6); Calcium (Corrected) 9.3 mg/dL (8.5-10.1); Carbon Dioxide 26.1 mMol/L (20.0-31.0); Chloride 103 mMol/L (98-107); Creatinine (Component) 1.0 mg/dL (0.6-1.3); Estimated Creatinine Clearance 87.4 mL/min (>60); Globulin 3.2 gm/dL (2.3-3.5); Glucose 139 mg/dL (74-106); Lipase 30 U/L (12-53); Magnesium 2.0 mg/dL (1.6-2.6); Osmolality,Calculated 280 (275-295); Potassium 4.0 mMol/L (3.4-5.1); Sodium 138 mMol/L (136-145); Total Protein 7.1 gm/dL (5.7-8.2); Troponin I < 0.020 ng/mL (0.0-0.045); eGFR > 60 See Note
[2025-04-23 10:22] VITALS: BP 95/64; PULSE 70; RESP 19; TEMP 36.8; O2SAT 95
[2025-04-23 13:18] LABS: Glucose Estimated Average 189 mg/dL (80-131); Hemoglobin A1C 8.2 % Hgb (4.8-6.0)
[2025-04-23 13:39] LABS: B-Type Natriuretic Peptide 374 pg/mL (0-100)
== END 2025-04-23 11:07 | disposition home or self-care (01) ==
PROVIDERS: Emergency Provider Emergency Medicine; PCP Family Medicine
DX: K82.8 Other specified diseases of gallbladder (principal); I49.9 Cardiac arrhythmia, unspecified; I50.20 Unspecified systolic (congestive) heart failure; I48.91 Unspecified atrial fibrillation; E78.00 Pure hypercholesterolemia, unspecified; Z95.810 Presence of automatic (implantable) cardiac defibrillator
CPT/HCPCS: 36415; 71045; 76705; 80053; 82248; 83036; 83690; 83735; 83880; 84484; 85025; 85379; 93005; 99283